=== PATIENT | female | born 1940 | race Caucasian/White ===

== ENCOUNTER 2021-02-17 19:02 | Observation (INO) ==
[2021-02-17 20:09] LABS: Basophils # 0.1 K/mcL (0.0-0.2); Basophils % 0.5 %; Eosinophils # 0.1 K/mcL (0.0-0.6); Eosinophils % 1.1 %; Hematocrit 42.5 % (35.3-44.9); Hemoglobin 15.5 g/dL (11.5-15.4); Immature Granulocytes % 0.4 % (0-4); Lymphocytes # 1.9 K/mcL (0.6-4.6); Lymphocytes % 18.2 %; Mean Corpuscular HGB Conc 36.5 g/dL (31.6-35.5); Mean Corpuscular Hemoglobin 32.2 pg (28.0-33.3); Mean Corpuscular Volume 88.4 fL (83.0-100.0); Mean Platelet Volume 11.6 fL (9.4-12.4); Monocytes # 0.7 K/mcL (0.0-1.3); Neutrophils # 7.6 K/mcL (1.6-8.9); Platelet Count 289 K/mcL (140-400); Red Blood Count 4.81 M/mcL (3.82-4.97); Red Cell Distribution Width 13.3 % (11.5-14.5); Segmented Neutrophils % 72.8 %; White Blood Count 10.5 K/mcL (4.3-11.1)
[2021-02-17] MEDS ORDERED: Amiodarone Premix 150 MG/100 ML BAG IVPB ONE (20:23)
[2021-02-17] MEDS ORDERED: Amiodarone Premix 360 MG/200 ML BAG IVC ONE (20:24)
[2021-02-17 20:28] LABS: BUN/Creatinine Ratio 20 (6-26); Blood Urea Nitrogen 15 mg/dL (8-23); Calcium 8.8 mg/dL (8.6-10.3); Carbon Dioxide 29 mEq/L (23-29); Chloride 98 mEq/L (98-107); Glucose 141 mg/dL (70-105); Osmolality,Calculated 289 (280-300); Potassium 3.1 mEq/L (3.5-5.1); Sodium 138 mEq/L (136-145); eGFR For African Americans > 60 (> 60); eGFR For Non-African Americans > 60 (> 60)
[2021-02-17 20:35] LABS: Troponin I < 0.03 ng/mL (< 0.04)
[2021-02-17 21:02] LABS: INR 1.5; Prothrombin Time 17.2 Seconds (9.4-12.1)
[2021-02-17 21:04] LABS: Activated Partial Thrombo Time 40.5 Seconds (26.0-36.0)
[2021-02-17 21:14] LABS: Thyroid Stimulating Hormone 2.549 mcIU/mL (0.340-5.600)
[2021-02-17] MEDS ORDERED: Potassium Chloride Elixir 20 MEQ/15 ML UDC PO ONE (22:00)
[2021-02-17] MEDS ORDERED: Melatonin 3 MG TABLET PO PRN (23:19)
[2021-02-17] MEDS ORDERED: Naloxone 0.4 MG/ML INJ IVP PRN (23:19)
[2021-02-17] MEDS ORDERED: Acetaminophen 325 MG TABLET PO PRN (23:19)
[2021-02-18] MEDS: Apixaban 5 MG TABLET PO SCH ×3 (02:20→19:27)
[2021-02-18] MEDS ORDERED: Amiodarone Premix 360 MG/200 ML BAG IVC SCH (02:25)
[2021-02-18] MEDS ORDERED: Dextrose Gel 15 GM/37.5 ML TUBE PO PRN ×2 (02:52)
[2021-02-18] MEDS ORDERED: D5% in Water 1,000 ML IVC PRN (02:52)
[2021-02-18] MEDS ORDERED: *HR* Dextrose 50 % in Water (Syg) 50 ML SYRINGE IVP PRN (02:52)
[2021-02-18 03:07] LABS: Hematocrit 39.9 % (35.3-44.9); Mean Corpuscular HGB Conc 33.1 g/dL (31.6-35.5); Mean Corpuscular Hemoglobin 29.8 pg (28.0-33.3); Mean Corpuscular Volume 90.1 fL (83.0-100.0); Mean Platelet Volume 11.6 fL (9.4-12.4); Platelet Count 258 K/mcL (140-400); Red Blood Count 4.43 M/mcL (3.82-4.97); Red Cell Distribution Width 13.5 % (11.5-14.5); White Blood Count 8.5 K/mcL (4.3-11.1)
[2021-02-18 03:13] LABS: Hemoglobin 13.2 g/dL (11.5-15.4)
[2021-02-18 03:26] LABS: Alanine Aminotransferase 17 Units/L (7-52); Albumin 3.6 g/dL (3.5-5.7); Albumin/Globulin Ratio 1.2 (1.1-2.2); Alkaline Phosphatase 54 Units/L (34-104); Aspartate Amino Transferase 15 Units/L (13-39); BUN/Creatinine Ratio 18 (6-26); Bilirubin,Total 0.4 mg/dL (0.3-1.0); Blood Urea Nitrogen 15 mg/dL (8-23); Calcium 8.5 mg/dL (8.6-10.3); Carbon Dioxide 32 mEq/L (23-29); Chloride 100 mEq/L (98-107); Glucose 234 mg/dL (70-105); Magnesium 1.7 mg/dL (1.6-2.6); Osmolality,Calculated 294 (280-300); Phosphorous 3.6 mg/dL (2.7-4.5); Potassium 3.7 mEq/L (3.5-5.1); Sodium 138 mEq/L (136-145); Total Protein 6.6 g/dL (6.4-8.9); eGFR For African Americans > 60 (> 60); eGFR For Non-African Americans > 60 (> 60)
[2021-02-18] MEDS: Insulin LISPRO 300 UNITS/3 ML VIAL SUBQ SCH ×3 (08:33→17:02)
[2021-02-18] MEDS: Metoprolol XL (24 HR) Succ 25 MG TAB.ER.24H PO SCH ×2 (08:37→19:26)
[2021-02-18] MEDS: *HR* Amiodarone 200 MG TABLET PO SCH (08:37)
[2021-02-18] MEDS ORDERED: Aspirin Enteric Coated 81 MG Tablet PO SCH (21:00)
[2021-02-18] MEDS ORDERED: Mag Hydrox/Al Hydrox/Simeth 30 ML UDC PO ONE (21:43)
[2021-02-19 07:31] VITALS: TEMP 98; O2SAT 96
[2021-02-19] MEDS: Metoprolol XL (24 HR) Succ 25 MG TAB.ER.24H PO SCH (08:44)
[2021-02-19] MEDS: Apixaban 5 MG TABLET PO SCH (08:44)
[2021-02-19] MEDS: Insulin LISPRO 300 UNITS/3 ML VIAL SUBQ SCH (08:44)
[2021-02-19] MEDS: *HR* Amiodarone 200 MG TABLET PO SCH (08:44)
[2021-02-19 08:49] VITALS: BP 143/46; PULSE 62
== END 2021-02-19 11:57 | disposition home or self-care (01) ==
LOC: EMEROOARM 19:02 → 2NENU 19:02 → SUATTDRO 21:53 → 2NENU 22:53
PROVIDERS: ADMIT Family Medicine; ATTEND Internal Medicine